=== PATIENT | female | born 1935 | race Caucasian/White ===

== ENCOUNTER 2017-02-10 15:53 | Emergency (ER) | payer OTHER ==
[2017-02-10] MEDS: traMADol 50 MG TABLET PO (17:05)
== END 2017-02-10 18:07 | disposition home or self-care (01) ==
LOC: ER 15:53
DX: S69.92XA Unspecified injury of left wrist, hand and finger(s), initial encounter (principal); S79.912A Unspecified injury of left hip, initial encounter; Z91.018 Allergy to other foods; W18.30XA Fall on same level, unspecified, initial encounter; Y93.89 Activity, other specified; Y99.8 Other external cause status; Y92.89 Other specified places as the place of occurrence of the external cause
CPT/HCPCS: 29125; 73110; 73130; 73502; 99284-25

== ENCOUNTER 2021-02-13 05:54 | Inpatient (IN) | payer MEDICARE, OTHER ==
[~2021-02-13] VITALS: Ht 162.6 cm; Wt 58.2 kg
[~2021-02-13 05:54] MED LIST: TRAM50TA PO
--- NOTE | 2021-02-13 06:12 | PHYS DOC ---
Past Medical History Past Medical History: Diabetes-Type II, Hypertension Past Surgical History: Other Additional Past Surgical Histo: right rotator cuff repair, thyroidectomy, colon resection Smoking Status: Never Smoker Alcohol Use: None Drug Use: None General Adult EDM: Chief Complaint: MECHANICAL FALL HPI: HPI: 85-year-old female past medical history of diabetes, hypertension and PVCs with loop recorder (no h/o syncope), presents to the ED BIBEMS with c/o left arm and elbow pain that started just prior to ED arrival after patient fell while out of bed. Reports her called 911. Is right-hand dominant. Is not on any anticoagulants. Denies any alcohol or drug use. Was ambulatory after the event. EMR reviewed-pt with concern for left scapholunate ligament tear (widening on xray). Denies any associated loss of consciousness, severe headache, neck pain, dizziness, chest pain or shortness of breath. Takes levemir 16U qhs. Ate bernabe food cake prior to bed. No h/o hypoglycemia or syncope. Review of Systems: Review of Systems: Constitutional: Denies fever or chills. [] Eyes: Denies change in visual acuity. [] HENT: Denies nasal congestion or sore throat. [] Respiratory: Denies cough or shortness of breath. [] Cardiovascular: Denies chest pain or edema. [] GI: Denies abdominal pain, nausea, vomiting, bloody stools or diarrhea. [] : Denies incontinence or saddle anesthesia Musculoskeletal: Denies back pain or flank pain Integument: Denies rash or diaphoresis Neurologic: Denies headache, neck pain, focal weakness or sensory changes. [] Endocrine: Denies polyuria or polydipsia. [] Lymphatic: Denies swollen glands. [] Psychiatric: Denies depression or anxiety. [] Heart Score: C/O Chest Pain: No Risk Factors: Risk Factors: DM, Current or recent (<one month) smoker, HTN, HLP, family history of CAD, obesity. Risk Scores: Score 0 - 3: 2.5% MACE over next 6 weeks - Discharge Home Score 4 - 6: 20.3% MACE over next 6 weeks - Admit for Clinical Observation Score 7 - 10: 72.7% MACE over next 6 weeks - Early Invasive Strategies Allergies: Allergies: Allergies Uncoded Allergies Type Severity Reaction Last Updated Verified CINNAMON POPCORN Allergy Mild BLISTERS 12/23/17 Physical Exam: PE: Constitutional: Well developed, well nourished, no acute distress, non-toxic appearance. HENT: Normocephalic, atraumatic, dry mucous membranes Eyes: Pupils equal and reactive, EOMI, conjunctiva normal, no discharge. Neck: Normal range of motion, supple, horizontal scar over thyroid s/p thyroidectomy-not on thyroid medication, no midline neck pain Cardiovascular: S1/2 present, regular rhythm, elizabeth xt on left upper chest wall Lungs & Thorax: Speaking in full sentences, bilateral equal chest rise, no tachypnea or increased work of breathing Abdomen: soft, no tenderness, no hip pain Skin: Warm, dry, no erythema, no rash. [] Back: No midline spinal step-offs or tenderness, no CVA tenderness. [] Extremities: Tenderness over distal arm and lateral elbow deformity, no cyanosis/normal cap refill, axillary/radial/ulnar/median nerve sensation intact, painful left elbow flexion and extension, can touch left thumb to index and pinky finger, decreased left wrist flexion/extension 2/2 pain, equal radial and brachial pulses (pain with left brachial pulses palpation), no expanding hematoma Neurologic: Alert and oriented X 3, normal sensory function, intact axillary/radial/median/ulnar nerve sensation, Psychologic: Affect normal, judgement normal, mood normal. [] EKG: EKG: Sinus rhythm 61 bpm, left axis deviation, QTC 467, no T wave inversion, no ST ovation or ST depression Radiology/Procedures: Radiology/Procedures: IMAGING REPORT Signed PATIENT: ASTRID PERES ACCOUNT: [id number] : 1935 LOCATION: ER AGE: 85 SEX: F EXAM STATUS: REG ER ORD. PHYSICIAN: HARSHIL RODRIGUEZ DO REASON: FALL NURSE IN ROOM, EKG 06:33AM PROCEDURE: CT HEAD AND CERVICAL SPINE WO RS Compliance Statement: One or more of the following individualized dose reduction techniques were utilized for this examination: 1. Automated exposure control 2. Adjustment of the mA and/or kV according to patient size 3. Use of iterative reconstruction technique CT HEAD AND CERVICAL SPINE WITHOUT CONTRAST History: Reason: FALL, pain. Rodolfo's Comparison: None. Procedure: Axial images are obtained of the head from the skull base through the vertex without IV contrast. Noncontrast helical CT of the cervical spine was performed. Axial, sagittal, and coronal reconstructions were obtained. Findings: The ventricles and sulci are prominent, consistent with age-related cerebral atrophy. There is mild periventricular white matter hypoattenuation. This is a nonspecific finding but is commonly due to chronic small vessel ischemic disease in a patient of this age. No mass-effect, midline shift, hemorrhage or obvious acute infarction is identified. Basilar cisterns are patent. Bone windows demonstrate no significant calvarial abnormality. The visualized paranasal sinuses are clear. Mastoid air cells are well aerated. There is no evidence of acute fracture or acute malalignment of the cervical spine. The facet joints are severely hypertrophic. Several of the upper cervical spine facet joints are fused. There is disc space narrowing and reactive endplate changes throughout the cervical spine, most severe at C4/C5 and C5/C6. There is grade 1 anterolisthesis of all levels with the exception of C6/C7. There is uncinate process hypertrophy at multiple levels, worse on the right than the le ft. Moderate pannus formation posterior to the odontoid. Visualized soft tissues of the neck demonstrate no significant abnormalities. The visualized lung apices are clear. IMPRESSION: 1. No acute intracranial abnormality. 2. No acute fracture of the cervical spine. Electronically signed by: Vinayak Lopez MD (02/13/2021 7:18 AM) [facility] DICTATED and SIGNED BY: VINAYAK LOPEZ MD DATE: 02/13/21 [id number] IMAGING REPORT Signed PATIENT: ASTRID PERES ACCOUNT: [id number] : 1935 LOCATION: ER AGE: 85 SEX: F EXAM STATUS: REG ER ORD. PHYSICIAN: HARSHIL RODRIGUEZ DO REASON: fall, left elbow pain PROCEDURE: FOREARM LEFT XR FOREARM_LEFT 2 VIEWS, XR ELBOW_LEFT, XR HUMERUS_LT 2 VIEWS Clinical Indication: Reason: fall, left elbow pain / Spl. Instructions: / History: Comparison: None. Findings: There is acute traumatic displaced fracture of the distal metaphysis of the humerus. Fracture fragments are overriding and the distal fracture fragment is displaced laterally approximately 2 cm and is posteriorly displaced a shaft length. 2 small linear fracture fragments are identified adjacent to the distal humeral fracture fragment as seen on the forearm view [id number]. The medial fracture fragment measures approximately 1.4 cm in length, the lateral fracture fragment measures approximately 1.7 cm in length. There is no acute fracture of the more proximal humerus. No obvious deformity of the shoulder. No dislocation of the elbow is identified. No acute fracture of the radius or ulna is identified. There is arthropathy of the wrist. No acute fracture is seen. There is moderate soft tissue swelling at the elbow. There is first CMC and triscaphe arthropathy. IMPRESSION: 1. There is an acute traumatic displaced fracture of the distal humeral metaphysis. 2. No elbow dislocation. 3. No acute fracture of the radius or ulna. Electronically signed by: Vinayak Lopez MD (02/13/2021 7:59 AM) [facility] DICTATED and SIGNED BY: VINAYAK LOPEZ MD DATE: 02/13/21 [id number] IMAGING REPORT Signed PATIENT: ASTRID PERES ACCOUNT: [id number] : 1935 LOCATION: ER AGE: 85 SEX: F EXAM STATUS: REG ER ORD. PHYSICIAN: HARSHIL RODRIGUEZ DO REASON: fall, left elbow pain PROCEDURE: PORTABLE CHEST 1V XR CHEST 1V Clinical Indication: Reason: fall, left elbow pain / Spl. Instructions: / History: Comparison: None. Findings: A battery pack projects over the left midlung. There is a moderate sized hiatal hernia. Atherosclerotic thoracic aorta. The cardiac size is normal. Lungs are clear. There is no pneumothorax. No pleural effusion is appreciated. No acute bone abnormality.. There is advanced arthropathy of the right shoulder. IMPRESSION: No acute cardiopulmonary process. Electronically signed by: Vinayak Lopez MD (02/13/2021 7:53 AM) [facility] DICTATED and SIGNED BY: VINAYAK LOPEZ MD DATE: 02/13/21 [id number] Course & Med Decision Making: Course & Med Decision Making Pertinent Labs and Imaging studies reviewed. (See chart for details) Concern for fall in the setting hypoglycemia and left distal humerus fracture. Potassium and magnesium replacement started in emergency department. Is pending Covid testing for the OR. Orthopedic consult was placed/called. Will admit to medicine for further medical management. Patient stable time of admission and agrees with this plan. I have spoken with the patient and/or caregivers. I have explained the patient's condition, diagnosis and treatment plan based on the information available to me at this time. I have answered the patient's and/or caregivers questions and answered any concerns. The patient and/or caregivers have as good an understanding of the patient's diagnosis, condition and treatment plan as can be expected at this point. The patient has been stabilized within the capability of the emergency department. The patient will be transported for further care and management or will be moved to an observation or inpatient ser vice. I have communicated with the staff or medical practitioner taking over this patient's care. Ngoc Disclaimer: Ngoc Disclaimer: This electronic medical record was generated, in whole or in part, using a voice recognition dictation system. Departure Departure Impression: Primary Impression: Fall Additional Impressions: Fracture of distal end of humerus Hypoglycemia Disposition: ADMITTED INPATIENT Admitting Physician: VISHAL (Dr. Rodríguez) Condition: STABLE Referrals: YAJAIRA MELLO MD (PCP) HARSHIL RODRIGUEZ DO Feb 13, 2021 06:12
[2021-02-13] MEDS ORDERED: IV NORMAL SALINE 500ML BAG 500 ML IV ONE (06:15)
[2021-02-13 06:28] LABS: BASO # 0.1 x10^3/uL (0.0-0.2); BASO % 1 % (0-3); EOS # 0.3 x10^3/uL (0.0-0.7); EOS % 2 % (0-3); HEMATOCRIT 38.5 % (36.0-47.0); HEMOGLOBIN 12.7 g/dL (12.0-15.5); LYMPH # 3.2 x10^3/uL (1.0-4.8); LYMPH % 24 % (24-48); MEAN CORPUSCULAR HEMOGLOBIN 30 pg (25-35); MEAN CORPUSCULAR HGB CONC 33 g/dL (31-37); MEAN CORPUSCULAR VOLUME 92 fL (79-100); MONO # 0.8 x10^3/uL (0.0-1.1); MONO % 6 % (0-9); NEUT % 67 % (31-73); PLATELET COUNT 350 x10^3/uL (140-400); RED BLOOD COUNT 4.21 x10^6/uL (3.50-5.40); RED CELL DISTRIBUTION WIDTH 14.2 % (11.5-14.5); WHITE BLOOD COUNT 13.4 x10^3/uL (4.0-11.0)
--- NOTE | 2021-02-13 06:40 | EKG ---
[facility] [address] [place] [address] Test Date: 2021-02-13 Test Time: 06:30:42 Pat Name: ASTRID PERES Department: Room: Gender: F Shaper Set Up Operator: : 1935 Requested By: HARSHIL RODRIGUEZ Order Number: [id number] Reading MD: Marbin Patterson MD Measurements Intervals [place] Rate: 61 P: -10 CO: 178 QRS: -22 QRSD: 82 T: 28 QT: 462 QTc: 467 Interpretive Statements SINUS RHYTHM Electronically Signed On 02-14-2021 9:25:20 [employer]ARF [employer] by Marbin Patterson MD
[2021-02-13 06:42] LABS: ALBUMIN 4.1 g/dL (3.4-5.0); CALCIUM 9.6 mg/dL (8.5-10.1); CREATININE 0.8 mg/dL (0.6-1.0); GFR 68.3; MAGNESIUM 1.4 mg/dL (1.8-2.4); TOTAL BILIRUBIN 0.6 mg/dL (0.2-1.0); TOTAL PROTEIN 8.1 g/dL (6.4-8.2)
[2021-02-13 06:44] LABS: BILIRUBIN,URINE NEGATIVE (NEG); CLARITY,URINE CLEAR; COLOR,URINE YELLOW; NITRITE,URINE NEGATIVE (NEG); PH,URINE 7.5 (<5.0-8.0); PROTEIN,URINE NEGATIVE (NEG-TRACE); UROBILINOGEN,URINE 0.2 mg/dL (0.2 mg/dL)
[2021-02-13 06:58] LABS: BACTERIA,URINE FEW /HPF (0-FEW)
--- NOTE | 2021-02-13 07:21 | RAD ---
PQRS Compliance Statement: One or more of the following individualized dose reduction techniques were utilized for this examinat ion: 1. Automated exposure control 2. Adjustment of the mA and/or kV according to patient size 3. Use of iterative reconstruction technique CT HEAD AND CERVICAL SPINE WITHOUT CONTRAST History: Reason: FALL, pain. Rodolfo's Comparison: None. Procedure: Axial images are obtained of the head from the skull base through the vertex without IV co ntrast. Noncontrast helical CT of the cervical spine was performed. Axial, sagittal, and coronal rec onstructions were obtained. Findings: The ventricles and sulci are prominent, consistent with age-related cerebral atrophy. There is mild periventricular white matter hypoattenuation. This is a nonspecific finding but is commonly due to c hronic small vessel ischemic disease in a patient of this age. No mass-effect, midline shift, hemorrhage or obvious acute infarction is identified. Basilar cistern s are patent. Bone windows demonstrate no significant calvarial abnormality. The visualized paranasal sinuses are clear. Mastoid air cells are well aerated. There is no evidence of acute fracture or acute malalignment of the cervical spine. The facet joints are severely hypertrophic. Several of the upper cervical spine facet joints are fuse d. There is disc space narrowing and reactive endplate changes throughout the cervical spine, most se betzaida at C4/C5 and C5/C6. There is grade 1 anterolisthesis of all levels with the exception of C6/C7. There is uncinate process hypertrophy at multiple levels, worse on the right than the left. Moderate pannus formation posterior to the odontoid. Visualized soft tissues of the neck demonstrate no significant abnormalities. The visualized lung api gerardo are clear. IMPRESSION: 1. No acute intracranial abnormality. 2. No acute fracture of the cervical spine. Electronically signed by: Vinayak Lopez MD (02/13/2021 7:18 AM) [facility]
[2021-02-13] MEDS ORDERED: POTASSIUM BICARB 20 MEQ EFFERVESCENT TABLET. PO ONE (07:30)
[2021-02-13] MEDS ORDERED: MAGNESIUM SULFATE 1GM 100 ML IV ONE (07:30)
[2021-02-13] MEDS ORDERED: DEXTROSE 50% 25 GM / 50ML DISP.SYRIN. IV ONE (07:30)
--- NOTE | 2021-02-13 07:55 | RAD ---
XR CHEST 1V Clinical Indication: Reason: fall, left elbow pain / Spl. Instructions: / History: Comparison: None. Findings: A battery pack projects over the left midlung. There is a moderate sized hiatal hernia. Atherosclerot ic thoracic aorta. The cardiac size is normal. Lungs are clear. There is no pneumothorax. No pleural effusion is appreciated. No acute bone abnormality.. There is advanced arthropathy of the right shoul josias. IMPRESSION: No acute cardiopulmonary process. Electronically signed by: Vinayak Lopez MD (02/13/2021 7:53 AM) [facility]
--- NOTE | 2021-02-13 08:01 | RAD ---
XR FOREARM_LEFT 2 VIEWS, XR ELBOW_LEFT, XR HUMERUS_LT 2 VIEWS Clinical Indication: Reason: fall, left elbow pain / Spl. Instructions: / History: Comparison: None. Findings: There is acute traumatic displaced fracture of the distal metaphysis of the humerus. Fracture fragmen ts are overriding and the distal fracture fragment is displaced laterally approximately 2 cm and is p osteriorly displaced a shaft length. 2 small linear fracture fragments are identified adjacent to the distal humeral fracture fragment as seen on the forearm view [id number]. The medial fracture fragment tanja sures approximately 1.4 cm in length, the lateral fracture fragment measures approximately 1.7 cm in length. There is no acute fracture of the more proximal humerus. No obvious deformity of the shoulder. No dis location of the elbow is identified. No acute fracture of the radius or ulna is identified. There is arthropathy of the wrist. No acute fracture is seen. There is moderate soft tissue swelling at the el bow. There is first CMC and triscaphe arthropathy. IMPRESSION: 1. There is an acute traumatic displaced fracture of the distal humeral metaphysis. 2. No elbow dislocation. 3. No acute fracture of the radius or ulna. Electronically signed by: Vinayak Lopez MD (02/13/2021 7:59 AM) [facility]
--- NOTE | 2021-02-13 08:01 | RAD ---
XR FOREARM_LEFT 2 VIEWS, XR ELBOW_LEFT, XR HUMERUS_LT 2 VIEWS Clinical Indication: Reason: fall, left elbow pain / Spl. Instructions: / History: Comparison: None. Findings: There is acute traumatic displaced fracture of the distal metaphysis of the humerus. Fracture fragmen ts are overriding and the distal fracture fragment is displaced laterally approximately 2 cm and is p osteriorly displaced a shaft length. 2 small linear fracture fragments are identified adjacent to the distal humeral fracture fragment as seen on the forearm view [id number]. The medial fracture fragment tanja sures approximately 1.4 cm in length, the lateral fracture fragment measures approximately 1.7 cm in length. There is no acute fracture of the more proximal humerus. No obvious deformity of the shoulder. No dis location of the elbow is identified. No acute fracture of the radius or ulna is identified. There is arthropathy of the wrist. No acute fracture is seen. There is moderate soft tissue swelling at the el bow. There is first CMC and triscaphe arthropathy. IMPRESSION: 1. There is an acute traumatic displaced fracture of the distal humeral metaphysis. 2. No elbow dislocation. 3. No acute fracture of the radius or ulna. Electronically signed by: Vinayak Lopez MD (02/13/2021 7:59 AM) [facility]
--- NOTE | 2021-02-13 08:01 | RAD ---
XR FOREARM_LEFT 2 VIEWS, XR ELBOW_LEFT, XR HUMERUS_LT 2 VIEWS Clinical Indication: Reason: fall, left elbow pain / Spl. Instructions: / History: Comparison: None. Findings: There is acute traumatic displaced fracture of the distal metaphysis of the humerus. Fracture fragmen ts are overriding and the distal fracture fragment is displaced laterally approximately 2 cm and is p osteriorly displaced a shaft length. 2 small linear fracture fragments are identified adjacent to the distal humeral fracture fragment as seen on the forearm view [id number]. The medial fracture fragment tanja sures approximately 1.4 cm in length, the lateral fracture fragment measures approximately 1.7 cm in length. There is no acute fracture of the more proximal humerus. No obvious deformity of the shoulder. No dis location of the elbow is identified. No acute fracture of the radius or ulna is identified. There is arthropathy of the wrist. No acute fracture is seen. There is moderate soft tissue swelling at the el bow. There is first CMC and triscaphe arthropathy. IMPRESSION: 1. There is an acute traumatic displaced fracture of the distal humeral metaphysis. 2. No elbow dislocation. 3. No acute fracture of the radius or ulna. Electronically signed by: Vinayak Lopez MD (02/13/2021 7:59 AM) [facility]
[2021-02-13] MEDS ORDERED: HYDROmorphone 2 MG/ML INJ. IVP ONE ×2 (08:45→10:15)
--- NOTE | 2021-02-13 10:55 | RAD ---
CT LEFT UPPER EXTREMITY WO History: Left elbow pain. Fractured humerus. Comparison: Radiographs 02/13/2021. Technique: Noncontrast CT of the left elbow. Findings: There is a mildly comminuted transverse supracondylar fracture of the left distal humerus with approx imately 2.5 cm above the posterior displacement and shortening of the distal humerus fragment. The pr oximal portion of the humerus extends most nearly to the skin surface of the medial elbow, however no skin disruption is identified. The radiocapitellar and ulnohumeral joints are normally aligned. Elbow effusion and surrounding soft tissue swelling. Impression: 1. Mildly comminuted transverse supracondylar fracture with posterior displacement and shortening of the distal humerus fragment. 2. Close approximation of the proximal humerus fracture margin to the medial skin surface of the elb ow. Correlate for possible open fracture. ------ Exposure: One or more of the following individualized dose reduction techniques were utilized for thi s examination: 1. Automated exposure control 2. Adjustment of the mA and/or kV according to patient size 3. Use of iterative reconstruction technique. Electronically signed by: Casey Olmstead MD (02/13/2021 10:53 AM) [facility]
[2021-02-13] MEDS ORDERED: MAGNESIUM SULFATE 2GM 50 ML IV ONE (13:15)
[2021-02-13] MEDS ORDERED: KETOROLAC 15 MG/ML VIAL. IVP PRN (13:15)
[2021-02-13 15:50] VITALS: BP 121/82
--- NOTE | 2021-02-13 15:59 | PDOC ---
Provider Note Date of Service: DATE: 02/13/21 TIME: 15:55 Provider Note I met with this patient and evaluated her and her x-rays and CT. She is 85 years old, right-handed, and still works 2 days a week at [employer]. This is a very distal supracondylar humerus fracture in a patient who is elderly and likely has osteoporosis. Although internal fixation could be attempted, arthroplasty might be needed intraoperatively, such as total elbow arthroplasty, if fixation is impossible. Total elbow arthroplasty is not a procedure that I do, so I am recommending she get transferred to a higher level of care, where a surgeon who could do arthroplasty is available. I recommend transfer to [place], where Dr. Kurtz is communications program manager, and where Dr. Fran Vieyra can ultimately perform her surgery. Justifications for Admission Other Justification MAAME ALMEIDA MD Feb 13, 2021 15:59
[2021-02-13] MEDS: oxyCODONE/APAP 7.5/325 1 TAB TABLET PO PRN (18:12)
[2021-02-13] MEDS ORDERED: ATOR10TA PO (18:23)
[2021-02-13] MEDS ORDERED: METF500T16 PO (18:23)
[2021-02-13] MEDS ORDERED: CARV6.2511 PO (18:23)
[2021-02-13] MEDS ORDERED: INSU100V13 SQ (18:23)
[2021-02-13 19:00] VITALS: BP 129/90
[2021-02-13 23:00] VITALS: BP 120/76
[2021-02-14 03:00] VITALS: BP 118/68
[2021-02-14] MEDS: oxyCODONE/APAP 7.5/325 1 TAB TABLET PO PRN ×4 (05:30→17:56)
[2021-02-14 07:00] VITALS: BP 109/61
--- NOTE | 2021-02-14 10:43 | NUR ---
TIMOTHY following. Discussed with RN, pt from home with , room air, ada diet, COVID-[address] Morin recommending transfer to [place] for surgery. TIMOTHY initiated transfer with [facility] transfer line, all [facility] hospitals are closed to MED/SURG transfers at this time. TIMOTHY was advised to try again later. Awaiting further options from Dr. Morin. TIMOTHY will continue to follow. Addendum: 02/14/21 at 1503 by RICK AGUIRRE [place] and all [facility] hospital still closed to transfers Dr. Morin requested SW try [facility] - closed to transfers. Dr. Morin notified.
[2021-02-14 11:00] VITALS: BP 113/79
--- NOTE | 2021-02-14 11:37 | NUR ---
Ambulated to bathroom with assistance 2 person. Voided and had lg BM. Return back to chair. Pt's BP low 84/63 with heart rate 65. Increased IVF's to 100cc/hr. Notified Dr. Cloud gave orders.
[2021-02-14 15:00] VITALS: BP 110/68
[2021-02-14] MEDS: metFORMIN 500 MG TABLET PO SCH (17:56)
[2021-02-14 19:00] VITALS: BP 126/78
[2021-02-14] MEDS: ATORVASTATIN CALCIUM 10 MG TABLET. PO SCH (22:15)
[2021-02-14] MEDS: IV NORMAL SALINE 1000ML BAG 1,000 ML IV SCH ×2 (22:18→23:00)
[2021-02-14 23:00] VITALS: BP 139/97
[2021-02-15 03:00] VITALS: BP 111/64
[2021-02-15 07:00] VITALS: BP 109/69
--- NOTE | 2021-02-15 08:54 | PDOC ---
Provider Note Date of Service: DATE: 02/15/21 TIME: 08:53 Provider Note dictated , awaits transfer to ortho who can provide elbow replacement as fx repair not feasible, per dr bray- sadie iv now, add po Kcl per 3.0 K+, rest same Justifications for Admission Other Justification YAJAIRA MELLO MD Feb 15, 2021 08:54
[2021-02-15] MEDS ORDERED: HYDROcodone/APAP 5/325MG 1 TAB TABLET PO PRN (09:00)
[2021-02-15] MEDS: POTASSIUM CHLORIDE 10 MEQ TABLET.ER. PO SCH ×3 (09:21→17:50)
[2021-02-15] MEDS: metFORMIN 500 MG TABLET PO SCH ×2 (09:21→17:50)
[2021-02-15] MEDS: oxyCODONE/APAP 7.5/325 1 TAB TABLET PO PRN ×3 (09:21→17:50)
[2021-02-15] MEDS: POLYETHYLENE GLYCOL 3350 17 GM PACKET. PO SCH (09:22)
--- NOTE | 2021-02-15 10:53 | HP ---
DATE OF SERVICE: 02/15/2021 ADMIT DATE: 02/14/2021 CHIEF COMPLAINT: Fall. HISTORY OF PRESENT ILLNESS: This 85-year-old white female who has well controlled diabetes and hypertension, had a slip and fall and fractured her left elbow. She was found to have an inoperable ____ and she will need left elbow total arthroplasty in ____ . She has no other complaints at this time. PAST HISTORY: As listed per the chart. Well controlled diabetes and hypertension, on low dose insulin. ALLERGIES: LISTED IN THE CHART. SOCIAL HISTORY: , not physically active. She is nonsmoker, nondrinker. Follows her medical regimen very well. FAMILY HISTORY: Unremarkable. REVIEW OF SYSTEMS: No other complaints. OBJECTIVE: ENT: All within normal limits. NECK: No masses, nodes or bruits. LUNGS: Clear. CARDIOVASCULAR: Regular rate. No irregular beat, murmur or tachycardia. ABDOMEN: Soft, benign and nontender. EXTREMITIES: She has a left arm in a large gauze wrapped at her elbow and is immobile ____ normal. NEUROLOGIC: Physiologic and nonfocal. She can feel her fingertips on her left knot on the middle finger. ASSESSMENT: Severe supracondylar fracture of the left lower lobe, otherwise medically stable. PLAN: Await transfer to facility that can provide her total elbow arthroplasty. SOLA/TIO KENNEDY: SHERRY/weston TID: [id number]
[2021-02-15 11:00] VITALS: BP 116/70
[2021-02-15 15:00] VITALS: BP 117/73
[2021-02-15] MEDS ORDERED: INSULIN GLARGINE SYRINGE. SQ SCH (17:00)
--- NOTE | 2021-02-15 18:00 | NUR ---
Pt wanting to talk to sales representatives. Left message on voice mail. Also notified powerhouse helper that family still wants to talk to her. Made aware and will come see patient when able to.
[2021-02-15 19:00] VITALS: BP 129/88
[2021-02-15] MEDS: ATORVASTATIN CALCIUM 10 MG TABLET. PO SCH (20:06)
[2021-02-15 23:00] VITALS: BP 134/84
[2021-02-16] MEDS: oxyCODONE/APAP 7.5/325 1 TAB TABLET PO PRN ×2 (00:26→08:04)
[2021-02-16 03:00] VITALS: BP 134/84
[2021-02-16 07:00] VITALS: BP 129/87
[2021-02-16] MEDS: metFORMIN 500 MG TABLET PO SCH (08:04)
[2021-02-16] MEDS: POLYETHYLENE GLYCOL 3350 17 GM PACKET. PO SCH (08:04)
[2021-02-16] MEDS: POTASSIUM CHLORIDE 10 MEQ TABLET.ER. PO SCH (08:04)
--- NOTE | 2021-02-16 08:28 | PDOC ---
Provider Note Date of Service: DATE: 02/16/21 TIME: 08:27 Provider Note [id number] Justifications for Admission Other Justification YAJAIRA MELLO MD Feb 16, 2021 08:28
--- NOTE | 2021-02-16 10:01 | NUR ---
SW following. Discussed with RN, discharge order for home with self care. SW will continue to follow.
[2021-02-16 11:00] VITALS: BP 111/69
--- NOTE | 2021-02-16 12:07 | DS ---
DATE OF DISCHARGE: 02/16/2021 HOSPITAL SUMMARY: An 85-year-old white female admitted with a fall and a fracture of the supracondylar left distal humerus. Laboratory studies were unremarkable. Dr. Morin, orthopedic consultation, felt that this was inoperable without a total elbow arthroplasty, which she does not provide and efforts were made to try to find someone to transfer here, but all hospitals were full. Her has found an orthopedist that she can see in [place] on 02/17 . He will take a holiday and follow up with that doctor tomorrow as an outpatient for operative planning. FINAL DIAGNOSIS: Fracture of the left distal humerus. OPERATIONS, PROCEDURES, AND COMPLICATIONS: None. CONSULTATION: Dr. Morin. DISPOSITION: Percocet 5/325 q. 4 hours p.r.n. Sent to [facility]. Home meds remain the same. ACTIVITY: As tolerated. PROGNOSIS: Guarded. LESLEY KENNEDY: Nelda TID: [id number]
--- NOTE | 2021-02-16 15:10 | NUR ---
Discharge instructions given. Answered questions and concerns. Verbalized understanding. Pt discharge home accompanied by spouse. Escorted out by w/c.
== END 2021-02-16 15:10 | disposition home or self-care (01) | DRG 563 ==
LOC: ER 05:54 → ED HOLD 08:24 → 4 NORTH 10:30
PROVIDERS: ADMIT Family Medicine; ATTEND Family Medicine
DX: S42.422A Displaced comminuted supracondylar fracture without intercondylar fracture of left humerus, initial encounter for closed fracture (principal); E11.649 Type 2 diabetes mellitus with hypoglycemia without coma; E89.0 Postprocedural hypothyroidism; I10 Essential (primary) hypertension; W01.0XXA Fall on same level from slipping, tripping and stumbling without subsequent striking against object, initial encounter; Y93.89 Activity, other specified; Y92.89 Other specified places as the place of occurrence of the external cause; Y99.8 Other external cause status; Z20.822 Contact with and (suspected) exposure to COVID-19; Z91.018 Allergy to other foods
CPT/HCPCS: 36415; 70450; 71045; 72125; 73060; 73070; 73090; 73200; 80053; 81001; 82962; 83735; 84484; 85025; 87426; 93005; 96361; 96374; 96375; 96376; J1170; J1815; J1885; J3475; J7030; J7040; U0003; U0005; 99285-25; G0378